=== PATIENT | female | born 1990 | race Hispanic/Latino ===

== ENCOUNTER 2018-04-08 08:39 | Emergency (ER) | payer BC ==
--- NOTE | 2018-04-08 09:00 | EDPHYS ---
Physician Documentation [facility] Name: Joana Gentile Age: 27 yrs Sex: Female : 1990 Arrival Date: 04/08/2018 Time: 08:40 Bed 12 Private MD: ED Physician Nicolas Wooten HPI: 04/08 09:01 This 27 yrs old Female presents to ER via Wheelchair with unknown complaint. gs 09:01 The patient presents with an injury. The complaints affect the left knee. Context: The gs problem was sustained at a relative's home, resulted from twisting of the extremity, while lifting or pulling, the patient can partially bear weight. Onset: The symptoms/episode began/occurred yesterday. Modifying factors: the symptoms are aggravated by movement, weight bearing. Associated signs and symptoms: Pertinent negatives calf tenderness, numbness, weakness. Severity of symptoms: At their worst the symptoms were moderate, in the emergency department the symptoms are unchanged. The patient has not experienced similar symptoms in the past. 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 - Social history:: Smoking status: Patient uses tobacco products, vape. - Ebola Screening: : No symptoms or risks identified at this time. ROS: 09:01 All other systems are negative. gs Exam: 09:01 Eyes: Pupils equal round and reactive to light, extra-ocular motions intact. Lids and gs lashes normal. Conjunctiva and sclera are non-icteric and not injected. Cornea within normal limits. Periorbital areas with no swelling, redness, or edema. ENT: Nares patent. No nasal discharge, no septal abnormalities noted. Tympanic membranes are normal and external auditory canals are clear. Oropharynx with no redness, swelling, or masses, exudates, or evidence of obstruction, uvula midline. Mucous membranes moist. Neck: Trachea midline, no thyromegaly or masses palpated, and no cervical lymphadenopathy. Supple, full range of motion without nuchal rigidity, or vertebral point tenderness. No Meningismus. Chest/axilla: Normal chest wall appearance and motion. Nontender with no deformity. No lesions are appreciated. Cardiovascular: Regular rate and rhythm with a normal S1 and S2. No gallops, murmurs, or rubs. Normal PMI, no JVD. No pulse deficits. Respiratory: Lungs have equal breath sounds bilaterally, clear to auscultation and percussion. No rales, rhonchi or wheezes noted. No increased work of breathing, no retractions or nasal flaring. Abdomen/GI: Soft, non-tender, with normal bowel sounds. No distension or tympany. No guarding or rebound. No evidence of tenderness throughout. Back: No spinal tenderness. No costovertebral tenderness. Full range of motion. Skin: Warm, dry with normal turgor. Normal color with no rashes, no lesions, and no evidence of cellulitis. Neuro: Awake and alert, GCS 15, oriented to person, place, time, and situation. Cranial nerves II-XII grossly intact. Motor strength 5/5 in all extremities. Sensory grossly intact. Cerebellar exam normal. Normal gait. 09:01 Constitutional: The patient appears alert, awake. 09:01 Head/face: Noted is abrasion(s), that are mild, of the left cheek. 09:01 Musculoskeletal/extremity: ROM: limited active range of motion due to pain, limited passive range of motion due to pain, Circulation is intact in all extremities. Joints: the left knee displays painful range of motion, tenderness. Vital Signs: 08:50 BP 126 / 85; Pulse 97; Resp 18; Temp 98.3; Pulse Ox 97% on R/A; Weight 77.11 kg; Height ph 5 ft. 1 in. (154.94 cm); Pain 10/10; 08:50 Body Mass Index 32.12 (77.11 kg, 154.94 cm) ph MDM: 08:58 Patient medically screened. gs 09:01 Differential diagnosis: contusion, abrasion, tendonitis, sprain. Data reviewed: vital gs signs, nurses notes. Response to treatment: the patient's symptoms have mildly improved after treatment, and as a result, I will discharge patient. 04/08 08:59 Order name: Knee Immobilizer; Complete Time: 09:11 gs Administered Medications: 09:11 Drug: Ibuprofen 600 mg Route: PO; aj 09:11 Follow up: Response: Medication administered at discharge. olivia Disposition: 04/08/18 09:00 Discharged to Home. Impression: Other internal derangements of left knee. - Condition is Stable. - Discharge Instructions: Knee Immobilizer, Knee - Cartilage (Meniscus) Injury. - Prescriptions for Naprosyn 500 mg Oral Tablet - take 1 tablet by ORAL route 2 times per day As needed take with food; 30 tablet. - Work release form, Medication Reconciliation Form, Thank You Letter, Antibiotic Education, Prescription Opioid Use form. - Follow up: Ranjit Fagan MD; When: 2 - 3 days; Reason: Re-evaluation by your physician. Signatures: Madonna Hamm RN RN aj Hall, Patricia, RN RN WootenNicolas MD MD Corrections: (The following items were deleted from the chart) 09:17 09:00 04/08/2018 09:00 Discharged to Home. Impression: Other internal derangements of aj left knee. Condition is Stable. Forms are Medication Reconciliation Form, Thank You Letter, Antibiotic Education, Prescription Opioid Use. Follow up: Dr. Ranjit Fagan; When: 2 - 3 days; Reason: Re-evaluation by your physician. gs
--- NOTE | 2018-04-08 09:00 | ER ---
Nurse's Notes [facility] Name: Joana Gentile Age: 27 yrs Sex: Female : 1990 Arrival Date: 04/08/2018 Time: 08:40 Bed 12 Private MD: Diagnosis: Other internal derangements of left knee Presentation: 04/08 08:48 Presenting complaint: Patient states: " I was playing around w/ my sister last night ph and I twisted and hit my knee on the picnic table. It hurt a little last night but when I got up this morning and went to stand up I almost fell down because it hurt so bad." Pt reports pain in L knee, small bruise and slight swelling noted, CMS intact. Transition of care: patient was not received from another setting of care. Onset of symptoms was April 08, 2018. Risk Assessment: Do you want to hurt yourself or someone else? Patient reports no desire to harm self or others. Initial Sepsis Screen: Does the patient meet any 2 criteria? No. Patient's initial sepsis screen is negative. Does the patient have a suspected source of infection? No. Patient's initial sepsis screen is negative. Care prior to arrival: None. 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 - Social history:: Smoking status: Patient uses tobacco products, vape. - Ebola Screening: : No symptoms or risks identified at this time. Screenin:11 Abuse screen: Denies threats or abuse. Denies injuries from another. Nutritional aj screening: No deficits noted. Tuberculosis screening: No symptoms or risk factors identified. Fall Risk None identified. Assessment: 09:11 General: Appears in no apparent distress. comfortable, Behavior is calm, cooperative, aj appropriate for age. Pain: Complains of pain in left knee. Neuro: Level of Consciousness is awake, alert, obeys commands, Oriented to person, place, time, situation, Appropriate for age. Respiratory: Airway is patent Respiratory effort is even, unlabored, Respiratory pattern is regular, symmetrical. Derm: Skin is intact, is healthy with good turgor, Skin is pink, warm \\T\\ dry. normal. Musculoskeletal: Circulation, motion, and sensation intact. Range of motion: intact in all extremities, Reports pain in left knee. Vital Signs: 08:50 BP 126 / 85; Pulse 97; Resp 18; Temp 98.3; Pulse Ox 97% on R/A; Weight 77.11 kg; Height ph 5 ft. 1 in. (154.94 cm); Pain 10/10; 08:50 Body Mass Index 32.12 (77.11 kg, 154.94 cm) ph ED Course: 08:40 Patient arrived in ED. ph 08:41 Nicolas Wooten MD is Attending Physician. gs 08:50 Triage completed. ph 08:53 Madonna Hamm, RN is Primary Nurse. aj 08:53 Arm band placed on. ph 08:59 Ranjit Fagan MD is Referral Physician. gs 09:11 Patient has correct armband on for positive identification. aj 09:11 No provider procedures requiring assistance completed. Patient did not have IV access aj during this emergency room visit. Knee immobilizer applied on left knee. Administered Medications: 09:11 Drug: Ibuprofen 600 mg Route: PO; aj 09:11 Follow up: Response: Medication administered at discharge. aj Outcome: 09:00 Discharge ordered by . 09:15 Discharged to home ambulatory. aj 09:15 Condition: good 09:15 Discharge instructions given to patient, Instructed on discharge instructions, follow up and referral plans. medication usage, Demonstrated understanding of instructions, follow-up care, medications, Prescriptions given X 1. 09:17 Patient left the ED. aj Signatures: Madonna Hamm RN RN aj Hall, Patricia, RN RN Nicolas Wooten MD MD
[2018-04-08] MEDS ORDERED: IBUPROFEN 400 MG TAB ONE (09:01)
== END 2018-04-08 09:17 | disposition home or self-care (01) ==
LOC: ER 08:39
DX: M23.8X2 Other internal derangements of left knee (principal); X50.1XXA Overexertion from prolonged static or awkward postures, initial encounter; Y93.89 Activity, other specified; Y92.89 Other specified places as the place of occurrence of the external cause; Z72.0 Tobacco use
CPT/HCPCS: 99283